=== PATIENT | female | born 1985 | race Hispanic/Latino ===

== ENCOUNTER 2017-06-07 22:18 | Emergency (ER) | payer OTHER ==
[~2017-06-07] VITALS: Ht 160 cm; Wt 135.2 kg
[~2017-06-07 22:18] MED LIST: AMBIEN10 MG PO; BECLOMETHASONE D INH; LEVOCETIRIZINE D5 MG PO; SUMATRIPTAN SUC25 MG PO; Z.0.VENTOLIN HFA18 G INH
--- OUTSIDE RECORDS SUMMARY | 2017-06-07 22:20 | XMS REPORT | Clinical Summary ---
Author Author [facility] Address Unknown Phone Unavailable Care Team Providers Care Band Maker Name Role Phone PCP Unavailable Allergies Active Allergy Reactions Severity Noted Date Comments Codeine Rash Low 05/18/2014 Current Medications Prescription Sig. Disp. Refills Start End Date Status Date ALBUTEROL INHL Inhale by mouth via Active inhaler. ZOLPIDEM TARTRATE (AMBIEN Take by mouth. Active ORAL) ondansetron (ZOFRAN-ODT) Take 1 tablet (4 mg 20 tablet 0 03/23/19 Active 4 MG disintegrating total) by mouth every 4 16 tablet (four) hours as needed for Nausea. dicyclomine (BENTYL) 20 Take 1 tablet (20 mg 20 tablet 0 09/12/19 mg tablet total) by mouth every 6 16 17 (six) hours as needed (abdominal cramping). Active Problems Not on file Social History Tobacco Use Types Packs/Day Years Used Date Never Smoker Alcohol Use Drinks/Week oz/Week Comments No Sex Assigned at Date Recorded Not on file Last Filed Vital Signs Not on file Plan of Treatment Not on file Results Not on fileafter 06/06/2016
[2017-06-07] MEDS ORDERED: HYDROCODONE/APAP 5MG-325MG TAB PO ONE (23:15)
[2017-06-08 00:44] VITALS: BP 142/67
== END 2017-06-08 00:50 | disposition home or self-care (01) ==
LOC: FSED 22:18
PROC: 2W3QX1Z Immobilization of Right Lower Leg using Splint (ICD-10-PCS; principal; 2017-06-07)
DX: S92.301A Fracture of unspecified metatarsal bone(s), right foot, initial encounter for closed fracture (principal); R26.2 Difficulty in walking, not elsewhere classified; X50.1XXA Overexertion from prolonged static or awkward postures, initial encounter; Y92.008 Other place in unspecified non-institutional (private) residence as the place of occurrence of the external cause
CPT/HCPCS: 99284

== ENCOUNTER 2019-01-10 04:59 | Emergency (ER) | payer OTHER ==
[~2019-01-10] VITALS: Ht 162.6 cm; Wt 151.5 kg
--- OUTSIDE RECORDS SUMMARY | 2019-01-10 05:01 | XMS REPORT | Summary of Care ---
Author Author [facility] Organization Unknown Address Unknown Phone Unavailable Care Team Providers Care Ring Stamper Name Role Phone DAVID PAREDES M.D. Unavailable Unavailable Unavailable Unavailable Functional Status Name Dates Details Functional status health issues are not documented Status: Name Dates Details Cognitive status health issues are not documented Status: Problems Name Dates Details Active medical history not documented Status: Medications Name Dates Details TraMADol HCl - 50 MG Oral Tablet 1 TAB EVERY Q 6HRS PRN PAIN Quantity: 30 DAVID PAREDES M.D. * Start : 18-Jul-2017 Active Allergies and Adverse Reactions Name Dates Details Allergy history not documented Status: Procedures Procedure Dates Details Procedures not documented Immunization Name Dates Details Immunizations not documented Social History Name Dates Details Unknown if ever smoked Vital Signs Date Test Result Details No Known Vitals to report Results Date Description Value Details Results not documented Plan of Care Name Dates Details Planned Observations Planned Goals not documented Instructions Name Dates Details Instructions not documented Encounters Appointment; DAVID PAREDES M.D. Encounter Diagnosis: Problem not documented On: 09-Jun-2017 13:30 Appointment; DAVID PAREDES M.D. Encounter Diagnosis: Problem not documented On: 10-Jul-2017 15:15 Appointment; DAVID PAREDES M.D. Encounter Diagnosis: Problem not documented On: 11-Aug-2017 14:00
[2019-01-10] MEDS ORDERED: ALBUTEROL/IPRATROPIUM 3 ML NEB NEB STA (05:16)
--- NOTE | 2019-01-10 05:58 | Diagnostic Imaging Report ---
EXAMINATION: CXR 2 VIEW - HOPD INDICATION: Cough. COMPARISON: None FINDINGS: TUBES and LINES: None. LUNGS: Low lung volumes. No evidence of pneumonia or pulmonary edema. Mild bronchial wall thickening. PLEURA: No pleural effusion or pneumothorax. HEART AND MEDIASTINUM: The cardiomediastinal silhouette is unremarkable. BONES AND SOFT TISSUES: No acute osseous abnormality. UPPER ABDOMEN: No free air under the diaphragm. IMPRESSION: Mild bronchial wall thickening, which may reflect nonspecific bronchitis in the setting of cough. No evidence of pneumonia. Signed by: Dr. Nirmal Humphries MD on 01/10/2019 5:54 AM
== END 2019-01-10 06:30 | disposition home or self-care (01) ==
LOC: FSED 04:59
DX: R05 Cough (principal); R07.89 Other chest pain; J11.1 Influenza due to unidentified influenza virus with other respiratory manifestations; J40 Bronchitis, not specified as acute or chronic
CPT/HCPCS: 71046; 87400; 99283